=== PATIENT | female | born 1950 | race American Indian/Alaskan Native ===

== ENCOUNTER 2017-04-13 07:29 | Day surgery (SDC) | payer MEDICARE ==
[2017-04-10 09:10] VITALS: BMI 33.3
[2017-04-13] MEDS ORDERED: methylPREDNISolone Depo 80 mg/ml Inj ONE (11:15)
[2017-04-13] MEDS ORDERED: MethylPREDNISolone Depo 40 mg/ml Inj ONE (11:15)
[2017-04-13] MEDS ORDERED: Bupivacaine 0.5% Inj(30mL) ONE (11:16)
[2017-04-13] MEDS ORDERED: Lidocaine 2% w Epi 1:100,000 Inj IJ ONE (11:16)
[2017-04-13] MEDS ORDERED: ceFAZolin IV 1 gm in Dextrose 2 GM/100 ML BAG IVPB ONE (11:16)
[2017-04-13] MEDS ORDERED: Lidocaine 1% Inj (20ml) ONE (11:16)
[2017-04-13] MEDS ORDERED: Lidocaine 4% (Laryng-O-Jet) Kit MM ONE (11:44)
[2017-04-13] MEDS ORDERED: Propofol 10 mg/ml Inj (20 ML) ONE (11:44)
[2017-04-13] MEDS ORDERED: Succinylcholine 200 mg/10 ml Inj IV ONE (11:44)
[2017-04-13] MEDS ORDERED: Midazolam 2 MG/2 ML VIAL ONE (12:32)
[2017-04-13] MEDS ORDERED: Lactated Ringer's 1,000 ML IV ONE ×2 (13:30→15:36)
[2017-04-13] MEDS ORDERED: Phenylephrine 10 mg/ml Inj ONE (14:56)
[2017-04-13] MEDS ORDERED: Lidocaine 1% Inj (20ml) IJ ONE (15:35)
[2017-04-13] MEDS ORDERED: Morphine 1 mg/ml preservative-free Inj(Duramorph) ONE (15:54)
[2017-04-13] MEDS ORDERED: Bupivacaine 0.5% Inj(30mL) IJ ONE (16:05)
[2017-04-13] MEDS ORDERED: methylPREDNISolone Depo 80 mg/ml Inj IM ONE (16:05)
[2017-04-13] MEDS ORDERED: HYDROmorphone 0.5 mg/0.5 ml ISec IVP PRN (16:29)
[2017-04-13] MEDS ORDERED: Lactated Ringer's 1,000 ML IV SCH (16:30)
--- NOTE | 2017-04-13 17:04 | PCM.SURG1 ---
Surgeon's Initial Post Op Note - Surgeon's Notes Surgeon: Laura Assembler Installer General: KIARA Yu Type of Anesthesia: General Endo Anesthesia Administered By: DR jackson Pre-Operative Diagnosis: Primary O/A L Knee Operative Findings: Primary O/A L knee. Tear medial meniscus/tear lateral meniscus. tricompartmental synovitis Post-Operative Diagnosis: same Operation Performed: arthroscopic microfracture ,edial femoral condyle. arthroscopic parttial medial/partial lateral meniscectomy. arthroscopic partial tricomp[artmental synovectomy. intrarticular injection Specimen/Specimens Removed: synovium/cartilage/bone Estimated Blood Loss: EBL {In ML}: 5 Blood Products Given: N/A Drains Used: No Drains Post-Op Condition: Good Date of Surgery/Procedure: 04/13/17 Time of Surgery/Procedure: 15:25 (time in room 1440)
[2017-04-13] MEDS ORDERED: Benzocaine/Menthol (Cepacol) Lozenge PO PRN (17:14)
[2017-04-13 18:53] VITALS: BP 156/68; PULSE 81; RESP 18; TEMP 98.4; O2SAT 97
--- NOTE | 2017-04-14 11:18 | OP ---
PROCEDURE DATE: 04/13/2017 LOCATION: [facility]. PREOPERATIVE DIAGNOSES: 1. Primary osteoarthritis of the left knee with evidence of subchondral eburnation, medial femoral condyle specifically. 2. Tricompartmental synovitis. 3. Complex tear, deep posterior horn medial meniscus and tear lateral meniscus, inner free edge. PROCEDURES: 1. Arthroscopic microfracture, medial femoral condyle. 2. Arthroscopic partial tricompartmental synovectomy. 3. Arthroscopic partial medial and lateral meniscectomy. 4. Intra-articular injection. SURGEON: Adrian Sanchez MD. INTEGRATION LEAD: Lisseth Medina, Certified Registered Nursing assistant casino shift manager. TYPE OF ANESTHESIA: General endotracheal anesthesia. ANESTHESIA ADMINISTERED BY: Emory Sanchez MD. COMPLICATIONS: None. DRAINS: None. 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 The patient has marked discomfort, pain, restricted range of motion, decrease in walking and sleeping tolerance. The patient was refractory to conservative approach consisting of anti-inflammatory medication, activity modification, and therapy. Pros, cons, risks, and benefits of surgical approach were discussed. Possibility of mechanical failure, infection, thromboembolic disease, secondary or tertiary surgery was discussed. The patient can no longer withstand the discomfort. DESCRIPTION OF PROCEDURE: After having obtained form consent in the above fashion; after having identified side, site, and procedure and a critical pause/time-out; after the satisfactory induction of the anesthetic, patient identified as Tammy Negrete in the supine position with all bony prominences well padded and the left lower extremity was prepped and free draped in usual fashion for lower extremity surgery. The tourniquet had been applied, but was not yet inflated. After exsanguinating the limb using a 6-inch Esmarch bandage, the tourniquet, which had been applied, was inflated to 350 mmHg. The joint was infiltrated with 10 mL of 1% lidocaine without epinephrine. Using #11 blade, followed by spreading, followed by introduction of a blunt trocar, the arthroscope was introduced. Examination of the joint commenced. Triangulation was accomplished using #18 spinal needle, followed by #11 blade, followed by spreading. With the arthroscope anterolaterally, there was found be rather dense tricompartmental synovitis. With the arthroscope anterolaterally, a careful partial tricompartmental synovectomy was accomplished using the Traver shaver. Hemostasis was controlled with Traver wand. With the arthroscope now anterolaterally, the surgeon exerting a gentle valgus stress so as to protect the medial collateral ligament, the deep posterior horn of the meniscus was identified. There was found to be a tear of the deep end of the medial meniscus. There was found to be evidence of a tear of the deep posterior horn. With the arthroscope anterolaterally, using a combination of straight biting basket forceps and the side biting basket forceps, a partial medial meniscectomy was accomplished. This was a very tedious process. The arthroscope was transferred back anteromedially to get to the deep posterior horn. Deep posterior horn was accessed and using an upbiting basket forceps and the arthroscopic shaver, a partial medial meniscectomy was completed. The inner free edge was smoothed using the Traver SERFAS wand. There was found evidence of a full-thickness chondral defect of medial femoral condyle. With the arthroscope anterolaterally, partial tricompartmental synovectomy was completed. With the arthroscope anterolaterally, there was found to be evidence of chondral damage to the medial femoral condyle. With the arthroscope anterolaterally, the surgeon exerting a gentle valgus stress with the knee in [id number] position, lateral meniscus was exposed. There was found to be a tear of the inner free edge of the lateral meniscus. There was evidence of chondral damage in the femoral trochlea and medial femoral condyle. With the arthroscope now transferred back anterolaterally, with the knee flexed approximately 35-45 degrees, microfracture was accomplished at the medial femoral condyle using the arthroscopic pick. This having been accomplished, with the arthroscope anterolaterally, using the arthroscopic pick, careful partial tricompartmental synovectomy was completed. Hemostasis was controlled with the wand. With the arthroscope anterolaterally, careful partial tricompartmental synovectomy was completed . With the arthroscope anterolaterally, careful partial tricompartmental synovectomy was completed. Bleeding points were controlled with the wand. This having been accomplished with the arthroscope anterolaterally, microfracture having been accomplished in a honeycomb-type fashion, free fragments were removed. Chondroplasty was accomplished with a shaver. Microfracture was completed. The wound was thoroughly irrigated. Closures in layers with interrupted Vicryl, nylon. Intra-articular injection was offered. Krishan Roche compression dressing was applied. Adrian Sanchez MD
== END 2017-04-13 19:40 | disposition home or self-care (01) ==
LOC: H.OPSURG 07:29
PROVIDERS: ATTEND Orthopaedic Surgery
DX: S83.241A Other tear of medial meniscus, current injury, right knee, initial encounter (principal); X58.XXXA Exposure to other specified factors, initial encounter; M17.12 Unilateral primary osteoarthritis, left knee; M65.862 Other synovitis and tenosynovitis, left lower leg
CPT/HCPCS: 20610; 29876; 29880; 82948; J0171; J0330; J0690; J1040; J2001; J2250; J2270; J2370; J2405; J2704; J3010; J7030; J7120